=== PATIENT | male | born 1990 | race Caucasian/White ===

== ENCOUNTER → 2016-04-03 | Outpatient (CLI) | payer OTHER ==
[2016-04-03 08:58] LABS: BASOPHILS # (AUTO) 0.1 10^3/uL (0.0-0.1); BASOPHILS % (AUTO) 1 % (0-10); EOSINOPHILS # (AUTO) 0.3 10^3/uL (0.0-0.3); EOSINOPHILS % (AUTO) 4 % (0-10); LYMPHOCYTES # (AUTO) 2.4 X 10^3 (1.0-4.0); LYMPHOCYTES % (AUTO) 32 % (12-44); MEAN CORPUSCULAR HEMOGLOBIN 32 PG (25-34); MEAN CORPUSCULAR HGB CONC 36 G/DL (32-36); MEAN CORPUSCULAR VOLUME 88 FL (80-99); MEAN PLATELET VOLUME 8.9 FL (7.4-10.4); MONOCYTES # (AUTO) 0.7 X 10^3 (0.0-1.0); MONOCYTES % (AUTO) 9 % (0-12); NEUTROPHILS # (AUTO) 4.2 X 10^3 (1.8-7.8); NEUTROPHILS % (AUTO) 55 % (42-75); PLATELET COUNT 302 10^3/uL (130-400); RED BLOOD COUNT 5.53 10^6/uL (4.35-5.85); RED CELL DISTRIBUTION WIDTH 12.2 % (10.0-14.5); WHITE BLOOD COUNT 7.7 10^3/uL (4.3-11.0)
[2016-04-03 09:26] LABS: ALANINE AMINOTRANSFERASE 33 U/L (0-55); ALBUMIN 4.9 G/DL (3.2-4.5); ANION GAP 12 MMOL/L (5-14); ASPARTATE AMINO TRANSFERASE 22 U/L (5-34); BILIRUBIN,TOTAL 0.7 MG/DL (0.1-1.0); BLOOD UREA NITROGEN 17 MG/DL (7-18); BUN/CREATININE RATIO 19; CALCIUM 9.7 MG/DL (8.5-10.1); CARBON DIOXIDE 25 MMOL/L (21-32); CHLORIDE 105 MMOL/L (98-107); CHOLESTEROL 216 MG/DL (< 200); CREATININE SERUM 0.89 MG/DL (0.60-1.30); DIRECT LDL 132 MG/DL (1-129); GFR ESTIMATED > 60; GLUCOSE 102 MG/DL (70-105); POTASSIUM 3.8 MMOL/L (3.6-5.0); SODIUM 142 MMOL/L (135-145); TOTAL PROTEIN 7.2 G/DL (6.4-8.2); TRIGLYCERIDES 83 MG/DL (<150); VLDL CHOLESTEROL 17 MG/DL (5-40)
[2016-04-03 09:46] LABS: THYROID STIMULATING HORMONE 0.44 UIU/ML (0.35-4.94)
== END ==
LOC: LAB 08:20
PROVIDERS: ATTEND Family Medicine
DX: I10 Essential (primary) hypertension (principal)
CPT/HCPCS: 36415; 80053; 80061; 84443; 85025

== ENCOUNTER → 2016-06-17 | Outpatient (CLI) | payer OTHER ==
--- NOTE | 2016-06-17 19:16 | Diagnostic Imaging Report ---
PROCEDURE: MR imaging of the brain without contrast. TECHNIQUE: Multiplanar, multisequence MR imaging of the brain was performed without contrast. INDICATION: Syncope, confusion. FINDINGS: There are no foci of abnormal diffusion restriction. There were no findings of an acute or subacute ischemic infarct. There is no evidence for intracranial hemorrhage. There are no findings of focal or generalized edema. No hydrocephalus. No evidence for an elevation to the intracranial pressures. There was no mass or mass effect, and the midline structures are intact and are nondisplaced. There are no abnormal extra-axial fluid collections. Brainstem and posterior fossa are unremarkable. There is left maxillary sinus lobular membrane thickening. No appreciable air-fluid level. The orbits appeared normal. IMPRESSION: Chronic appearing left maxillary sinus disease. Normal appearance of the brain. Dictated by: Dictated on workstation # [id number]
== END ==
LOC: RAD 17:51
PROVIDERS: ATTEND Internal Medicine Cardiovascular Disease
DX: R55 Syncope and collapse (principal); G40.89 Other seizures
CPT/HCPCS: 70551

== ENCOUNTER 2016-06-18 07:13 | Outpatient (CLI) | payer OTHER ==
[~2016-06-18] VITALS: Ht 177.8 cm; Wt 77.1 kg
[2016-06-18] VITALS (28 sets, daily range): BP systolic 64–170; BP diastolic 37–106
[2016-06-18] MEDS ORDERED: ATROPINE INJECTION 1 MG/10 ML SYR (ABBOTT) ONE (07:18)
[2016-06-18] MEDS ORDERED: NS IV 1000 ML 1,000 ML ONE (07:18)
[2016-06-18] MEDS ORDERED: NS IV 1000 ML 1,000 ML IV SCH (07:30)
--- NOTE | 2016-06-20 11:51 | TILT TABLE TEST ---
PROCEDURE PHYSICIAN: TED PITTS TILT TABLE TEST DATE OF PROCEDURE: 06/18/2016 ORDERING PHYSICIAN: Dr. Pitts. PRIMARY PHYSICIAN: Dr. Ponce CLINICAL DIAGNOSIS: Syncope. Baseline blood pressure was obtained. Continuous cardiac heart monitoring was performed during this study. The patient was made to lie flat and then the table was tilted with the head up at 70 degrees. Blood pressure was obtained every minute. 6 to 7 minutes into the study, he dropped his systolic blood pressure to in the low 60s. He became very symptomatic with it. He had profound dizziness and diaphoresis. The table was made flat again and his symptoms and blood pressure recovered over several minutes. He did not have cornelio syncope. CONCLUSIONS: Table test positive for vasodepressor syncope without any evidence of bradycardia. Job ID: [id number] Dictated Date: 06/19/2016 17:16:17 Interventional Physician Date: 06/20/2016 11:44:49 / erasto LEON
== END 2016-06-18 09:44 | disposition home or self-care (01) ==
LOC: CARD 07:13
PROVIDERS: ATTEND Nurse Practitioner Family
DX: R55 Syncope and collapse (principal); R56.9 Unspecified convulsions
CPT/HCPCS: 93660

== ENCOUNTER → 2016-06-19 | Outpatient (CLI) | payer OTHER | LOC: CARD 08:03 | PROVIDERS: ATTEND Internal Medicine Cardiovascular Disease | DX: G40.89 Other seizures (principal); R55 Syncope and collapse | CPT/HCPCS: 93225; 93226 ==

== ENCOUNTER → 2016-07-09 | Outpatient (CLI) | payer OTHER ==
--- NOTE | 2016-07-10 10:22 | ECHOCARDIOGRAPHY REPORT ---
DATE OF SERVICE: 07/09/2016 ORDERING PHYSICIAN: Dr. Pitts. PRIMARY CARE PHYSICIAN: Dr. Ponce. CLINICAL DIAGNOSIS: Syncope. MEASUREMENTS: 1. Aortic root, 3.2. 2. Left atrium, 3.3. 3. LV diameter, diastolic, 4.8. 4. IVS thickness, diastolic, 1.1. 5. LVPW thickness, diastolic, 1. DESCRIPTION: Two-dimensional echocardiography shows normal global left ventricular systolic function with normal regional wall motion. Aortic, mitral, and tricuspid valve leaflets show good leaflet excursion. The aortic root is trileaflet. No significant pericardial effusion is seen. Doppler imaging does not indicate any significant valvular regurgitation or stenosis. There is no evidence of any significant intracardiac shunt on this transthoracic echocardiographic study. Inferior vena cava is of normal size. CONCLUSIONS: 1. Normal global left ventricular systolic function with an ejection fraction of approximately 605. 2. No significant valvular regurgitation or stenosis on this study. Job ID: [id number] DocumentID: [id number] Dictated Date: 07/09/2016 17:39:55 [employer]ified [employer] Professional Date: 07/10/2016 09:01:57 Dictated By: TED PITTS MD, MA, FACP, FACC, MTDD
== END ==
LOC: CARD 08:57
PROVIDERS: ATTEND Nurse Practitioner Family
DX: R55 Syncope and collapse (principal); R56.9 Unspecified convulsions
CPT/HCPCS: 93306; 93351

== ENCOUNTER 2023-01-09 15:15 | Outpatient (RCR) | payer OTHER | END 2023-01-14 | disposition home or self-care (01) | PROVIDERS: ATTEND Physical Therapist | DX: M54.6 Pain in thoracic spine (principal); I10 Essential (primary) hypertension ==